=== PATIENT | female | born 2000 | race Caucasian/White ===

== ENCOUNTER → 2020-07-29 | Outpatient (CLI) | payer SELFPAY | LOC: ZCOL.LAB 14:21 | DX: U07.1 COVID-19 (principal) ==

== ENCOUNTER → 2024-01-16 | Emergency (ER) | payer BC ==
[~2024-01-16] VITALS: Ht 157.5 cm; Wt 54.5 kg
[~2024-01-16] MED LIST: ASPIRIN 81M81 MG/TA2 PO; MOTRIN 800800 MG/TAB PO; NO HOME MEDICATIONS; PRENATAL; SEPTRA SUS200/5-40/5 PO
[2024-01-16 23:30] VITALS: TEMP 98.3
[2024-01-17 00:04] LABS: BASO % 0.7 % (0.0-2.0); EOS # 0.2 K/mm3 (0.0-0.7); EOS % 3.1 % (0.0-4.0); GRAN # 2.5 K/mm3 (1.4-6.5); GRAN % 44.8 % (42.2-75.2); HEMOGLOBIN 11.7 g/dl (12.5-16.0); LYMPH # 2.5 K/mm3 (1.2-3.4); MEAN CELL VOLUME 91 fl (80.0-100.0); MEAN CORPUSCULAR HEMOGLOBIN 30 pg (27-31); MEAN CORPUSCULAR HGB CONC 33 g/dl (33.0-37.0); MEAN PLATELET VOLUME 9.1 fl (7.4-10.4); MONO # 0.3 K/mm3 (0.1-0.6); MONO % 6.2 % (1.7-9.3); PLATELET COUNT 319 K/mm3 (130-400); RED BLOOD COUNT 3.94 M/mm3 (4.10-5.30); REDCELL DISTRIBUTION WIDTH-CV 13.5 % (11.5-14.5)
[2024-01-17 00:25] LABS: ALBUMIN 4.2 gm/dL (3.5-5.0); BILIRUBIN,TOTAL 0.9 mg/dL (0.2-1.2); CALCIUM 9.6 mg/dL (8.4-10.2); CREATININE, serum 0.73 mg/dL (0.57-1.11); POTASSIUM 3.6 mmol/L (3.5-4.5); TOTAL PROTEIN 7.3 gm/dL (6.2-8.1)
[2024-01-17 01:20] VITALS: BP 118/71; PULSE 88
== END ==
LOC: COL.ER 23:14
PROVIDERS: Nurse Practitioner
DX: M79.662 Pain in left lower leg (principal); I83.92 Asymptomatic varicose veins of left lower extremity; Z91.040 Latex allergy status